=== PATIENT | male | born 1935 | race Caucasian/White ===

== ENCOUNTER → 2016-06-23 | Outpatient (CLI) | payer MEDICARE ==
[~2016-06-23] MED LIST: ASPIRIN325 MG PO; CARVEDILOL 1212.5 MG PO; CO Q-10 100 MG-1 SGL PO; HYDROCHLOROTH12.5 M2 PO; ISOSORBIDE MONO30 MG PO; JALYN 0.5 MG-0.1 CAP PO; METFORMIN ER500 MG PO; METFORMIN HYDR500 M1 PO; MIRALAX(PO17 GM/1 PA PO; NORVASC 5MG. TAB5 MG PO; PRAVACHOL 40MG40 MG PO; SLO NIACIN500 MG PO
== END ==
LOC: LAB 11:04
DX: N40.0 Benign prostatic hyperplasia without lower urinary tract symptoms (principal); Z12.5 Encounter for screening for malignant neoplasm of prostate
CPT/HCPCS: G0103